=== PATIENT | male | born 2000 | race Caucasian/White ===

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

== ENCOUNTER 2020-01-09 19:19 | Emergency (ER) | payer OTHER ==
[~2020-01-09] VITALS: Ht 188 cm; Wt 97.7 kg
[~2020-01-09 19:19] MED LIST: AUGM875T28 PO; PRED20TA PO
[2020-01-09 21:00] VITALS: BP 120/80
== END 2020-01-09 21:10 | disposition home or self-care (01) ==
LOC: M ED 19:19
DX: F33.9 Major depressive disorder, recurrent, unspecified (principal)